=== PATIENT | male | born 1960 | race African-American/Black ===

== ENCOUNTER 2018-07-21 23:03 | Emergency (ER) | payer BC, MEDICAID ==
[~2018-07-21] VITALS: Ht 177.8 cm; Wt 88.5 kg
--- NOTE | 2018-07-22 00:02 | NUR ---
Patient given written and verbal discharge instructions. Patient verbalizes understanding of instructions. Patient is ambulatory with steady gait. Refuses offer of residential placement. Patient given list of available shelters in surrounding area.
[2018-07-22 00:10] VITALS: BP 141/76
== END 2018-07-22 00:11 | disposition home or self-care (01) ==
LOC: ER 23:05
DX: M79.644 Pain in right finger(s) (principal); F20.9 Schizophrenia, unspecified; F14.10 Cocaine abuse, uncomplicated; F15.10 Other stimulant abuse, uncomplicated; Z71.6 Tobacco abuse counseling; F11.10 Opioid abuse, uncomplicated; F17.290 Nicotine dependence, other tobacco product, uncomplicated; Z59.0 Homelessness; Z90.49 Acquired absence of other specified parts of digestive tract
CPT/HCPCS: A4663